=== PATIENT | male | born 1990 | race Caucasian/White ===

== ENCOUNTER 2021-01-20 08:09 | Emergency (ER) | payer OTHER ==
[~2021-01-20 08:09] MED LIST: LORTAB 5-325 M1 EACH PO
[2021-01-20] MEDS ORDERED: NAPROSYN500 MG PO (08:51)
== END 2021-01-20 09:10 | disposition home or self-care (01) ==
LOC: ER1 08:09
DX: S92.514A Nondisplaced fracture of proximal phalanx of right lesser toe(s), initial encounter for closed fracture (principal); F17.290 Nicotine dependence, other tobacco product, uncomplicated; W19.XXXA Unspecified fall, initial encounter; Y92.009 Unspecified place in unspecified non-institutional (private) residence as the place of occurrence of the external cause
CPT/HCPCS: 73630; 96372; 99283; J1885

== ENCOUNTER → 2021-08-11 | Outpatient (CLI) | payer OTHER ==
[~2021-08-11] MED LIST changes: +NAPROSYN500 MG PO
== END ==
LOC: KOH-I 16:00
DX: M25.512 Pain in left shoulder (principal); R60.9 Edema, unspecified
CPT/HCPCS: 73221

== ENCOUNTER → 2021-10-25 | Outpatient (CLI) | payer OTHER | LOC: SLEEP 12:55 | DX: G47.10 Hypersomnia, unspecified (principal) | CPT/HCPCS: 95810 ==

== ENCOUNTER → 2021-10-26 | Outpatient (CLI) | payer OTHER | LOC: SLEEP 08:00 | DX: G47.10 Hypersomnia, unspecified (principal) | CPT/HCPCS: 95805 ==

== ENCOUNTER 2022-04-03 00:46 | Emergency (ER) | payer OTHER ==
[2022-04-03] MEDS ORDERED: IBUPROFEN800 MG PO (02:46)
== END 2022-04-03 03:03 | disposition home or self-care (01) ==
LOC: ER1 00:46
DX: S02.2XXA Fracture of nasal bones, initial encounter for closed fracture (principal); F17.200 Nicotine dependence, unspecified, uncomplicated; W22.8XXA Striking against or struck by other objects, initial encounter; Y92.009 Unspecified place in unspecified non-institutional (private) residence as the place of occurrence of the external cause
CPT/HCPCS: 70160; 99283